=== PATIENT | male | born 2000 | race African-American/Black ===

== ENCOUNTER 2023-10-04 12:20 | Emergency (ER) | payer OTHER ==
[~2023-10-04] VITALS: Ht 177.8 cm; Wt 81.3 kg
[2023-10-04 12:55] LABS: EOS # 0.3 10^3/uL (0.0-0.5); EOS % 6.2 % (0.0-3.0); HEMATOCRIT 45.6 % (42.0-52.0); HEMOGLOBIN 15.3 g/dl (13.5-17.5); LYMPH # 1.7 10^3/uL (1.5-5.0); LYMPH % 42.1 % (24.0-44.0); MEAN CORPUSCULAR HEMOGLOBIN 31.7 pg (27.0-33.0); MEAN CORPUSCULAR HGB CONC 33.6 g/dl (32.0-36.5); MEAN CORPUSCULAR VOLUME 94.4 fl (80.0-96.0); MONO # 0.6 10^3/uL (0.0-0.8); MONO % 15.2 % (2.0-8.0); NEUTROPHILS # 1.4 10^3/uL (1.5-8.5); NEUTROPHILS % 35.5 % (36.0-66.0); PLATELET COUNT, AUTOMATED 308 10^3/uL (150-450); RED BLOOD COUNT 4.83 10^6/uL (4.30-6.10)
[2023-10-04 13:06] LABS: INR 1.07; PROTHROMBIN TIME 13.6 SECONDS (12.5-14.5)
[2023-10-04 13:07] LABS: PARTIAL THROMBOPLASTIN TIME 30.3 SECONDS (24.8-34.2)
[2023-10-04 13:25] LABS: LIPASE 47 U/L (12-53)
[2023-10-04 13:27] LABS: ALBUMIN 4.1 G/DL (3.2-5.2); ALKALINE PHOSPHATASE 68 U/L (46-116); ALT/SGPT 28 U/L (7.0-40); AST/SGOT 20 U/L (<34); BILIRUBIN,DIRECT 0.1 MG/DL (<0.4); BILIRUBIN,TOTAL 0.4 MG/DL (0.3-1.2); BLOOD UREA NITROGEN 10 MG/DL (9-23); CALCIUM LEVEL 9.8 MG/DL (8.5-10.1); CARBON DIOXIDE LEVEL 30 MMOL/L (20-31); CHLORIDE LEVEL 106 MMOL/L (98-107); CK-MB VALUE MASS < 1.0 NG/ML (<3.6); CPK CREATINE PHOSPHOKINASE 139 U/L (46-171); CREATININE FOR GFR 0.91 MG/DL (0.70-1.30); GLOMERULAR FILTRATION RATE > 60.0 (>60); GLUCOSE, FASTING 67 MG/DL (60-100); MB/CK RELATIVE INDEX 0.71 (< OR =4); POTASSIUM SERUM 4.1 MMOL/L (3.5-5.1); SODIUM LEVEL 137 MMOL/L (136-145); TOTAL PROTEIN 7.4 G/DL (5.7-8.2)
[2023-10-04 13:29] LABS: FREE T4 1.05 NG/DL (0.89-1.76); THYROID STIMULATING HORMONE 1.775 uIU/ML (0.55-4.78)
[2023-10-04 14:40] LABS: MAGNESIUM LEVEL 1.9 MG/DL (1.8-2.4)
[2023-10-04 14:52] LABS: AMPHETAMINES LEVEL URINE NEGATIVE (NEGATIVE); BARBITURATES URINE NEGATIVE (NEGATIVE); BENZODIAZEPINES URINE NEGATIVE (NEGATIVE)
[2023-10-04 14:53] LABS: CANNABINOIDS URINE NEGATIVE (NEGATIVE); COCAINE METABOLITE URINE NEGATIVE (NEGATIVE); METHADONE URINE NEGATIVE (NEGATIVE); OPIATES URINE NEGATIVE (NEGATIVE); PHENCYCLIDINE URINE NEGATIVE (NEGATIVE)
[2023-10-04 15:32] VITALS: BP 124/62; TEMP 96.9; O2SAT 99
== END 2023-10-04 15:36 | disposition home or self-care (01) ==
LOC: M ED 12:20
DX: R07.9 Chest pain, unspecified (principal); R00.1 Bradycardia, unspecified; I25.2 Old myocardial infarction; F10.10 Alcohol abuse, uncomplicated

== ENCOUNTER 2024-07-13 12:51 | Inpatient (IN) | payer OTHER ==
[~2024-07-13] VITALS: Ht 177.8 cm; Wt 78.6 kg
[2024-07-13 13:45] LABS: HEMATOCRIT 45.6 % (42.0-52.0); HEMOGLOBIN 15.5 g/dl (13.5-17.5); MEAN CORPUSCULAR HEMOGLOBIN 31.7 pg (27.0-33.0); MEAN CORPUSCULAR VOLUME 93.3 fl (80.0-96.0); PLATELET COUNT, AUTOMATED 296 10^3/uL (150-450); RED BLOOD COUNT 4.89 10^6/uL (4.30-6.10); WHITE BLOOD COUNT 3.4 10^3/uL (4.0-10.0)
[2024-07-13 14:03] LABS: AMPHETAMINES LEVEL URINE NEGATIVE (NEGATIVE); BARBITURATES URINE NEGATIVE (NEGATIVE); BENZODIAZEPINES URINE NEGATIVE (NEGATIVE); CANNABINOIDS URINE NEGATIVE (NEGATIVE); COCAINE METABOLITE URINE NEGATIVE (NEGATIVE); METHADONE URINE NEGATIVE (NEGATIVE); OPIATES URINE NEGATIVE (NEGATIVE); PHENCYCLIDINE URINE NEGATIVE (NEGATIVE)
[2024-07-13 14:06] LABS: ETHYL ALCOHOL (ETHANOL) < 0.003 % (0.000-0.010)
[2024-07-13 14:07] LABS: SALICYLATE LEVEL < 3.0 MG/DL (<30)
[2024-07-13 14:08] LABS: ALBUMIN 4.4 G/DL (3.2-5.2); ALKALINE PHOSPHATASE 67 U/L (40-129); ALT/SGPT 38 U/L (7.0-40); AST/SGOT 18 U/L (<34); BILIRUBIN,DIRECT 0.2 MG/DL (<0.4); BILIRUBIN,TOTAL 0.5 MG/DL (0.3-1.2); BLOOD UREA NITROGEN 9 MG/DL (9-23); CALCIUM LEVEL 10.5 MG/DL (8.5-10.1); CARBON DIOXIDE LEVEL 29 MMOL/L (20-31); CHLORIDE LEVEL 103 MMOL/L (98-107); CREATININE FOR GFR 0.94 MG/DL (0.70-1.30); GLOMERULAR FILTRATION RATE > 60.0 (>60); GLUCOSE, FASTING 77 MG/DL (60-100); POTASSIUM SERUM 4.1 MMOL/L (3.5-5.1); SODIUM LEVEL 137 MMOL/L (136-145); TOTAL PROTEIN 8.3 G/DL (5.7-8.2)
[2024-07-13 14:10] LABS: THYROID STIMULATING HORMONE 2.726 uIU/ML (0.55-4.78)
[2024-07-13] MEDS ORDERED: SERT50TA29 PO (15:24)
[2024-07-13] MEDS ORDERED: ACETAMINOPHEN 325 MG TAB PO PRN (15:25)
[2024-07-13] MEDS ORDERED: IBUPROFEN 400MG TAB PO PRN (15:25)
[2024-07-13] MEDS ORDERED: MAALOX 30 ML SUSP *UDC PO PRN (15:25)
[2024-07-13] MEDS ORDERED: traZODone 50 MG TAB PO PRN (15:25)
[2024-07-13] MEDS ORDERED: MOM 30ML SUSPENSION UDC PO PRN (15:25)
[2024-07-13] MEDS ORDERED: diphenhydrAMINE 25MG CAP PO PRN (15:25)
[2024-07-13] MEDS ORDERED: HOME MED LIST COMPLETE! XX SCH (15:25)
[2024-07-13 16:50] VITALS: BP 138/79; TEMP 97.1; O2SAT 100
[2024-07-13] MEDS: NICOTINE 21MG/24HR 1 EA TRANSDERMAL TD SCH (18:29)
[2024-07-14 06:14] VITALS: BP 112/63; TEMP 98.1; O2SAT 97
[2024-07-14 15:06] VITALS: BP 149/65; TEMP 97.9; O2SAT 99
[2024-07-15 06:22] VITALS: BP 99/54; TEMP 97.9; O2SAT 98
[2024-07-15] MEDS: buPROPion 100 MG TAB PO SCH (08:51)
[2024-07-15 15:34] VITALS: BP 126/58; TEMP 98.5; O2SAT 100
[2024-07-16 06:11] VITALS: BP 105/58; TEMP 97.7; O2SAT 99
[2024-07-16 16:44] VITALS: BP 136/79; TEMP 97.4; O2SAT 100
[2024-07-17 06:22] VITALS: BP 121/56; TEMP 98; O2SAT 100
[2024-07-17 16:04] VITALS: BP 122/56; TEMP 97.4; O2SAT 98
[2024-07-18 06:35] VITALS: BP 118/56; TEMP 98.3; O2SAT 100
[2024-07-18 15:41] VITALS: BP 131/70; TEMP 96.9; O2SAT 100
[2024-07-19 06:32] VITALS: BP 109/55; TEMP 97; O2SAT 98
[2024-07-19 15:26] VITALS: BP 127/62; TEMP 98.2; O2SAT 98
[2024-07-20 06:38] VITALS: BP 111/72; TEMP 97.9; O2SAT 99
== END 2024-07-20 13:35 | disposition home or self-care (01) | DRG 881 ==
LOC: M ED 12:51 → M ED INP 15:23 → M PSY 16:29
PROVIDERS: ADMIT Psychiatry & Neurology Psychiatry; ATTEND Psychiatry & Neurology Psychiatry
DX: F32.9 Major depressive disorder, single episode, unspecified (principal); R45.851 Suicidal ideations; Z91.148 Patient's other noncompliance with medication regimen for other reason